=== PATIENT | female | born 1940 | race Caucasian/White ===

== ENCOUNTER 2020-08-21 11:54 | Emergency (ER) | payer OTHER ==
[~2020-08-21] VITALS: Ht 152.4 cm; Wt 72.6 kg
[2020-08-21 11:57] VITALS: BP 125/68
[2020-08-21] MEDS ORDERED: ATENOLOL 50MG T50 MG PO (12:05)
[2020-08-21] MEDS ORDERED: ACETAMINOPHEN500 M1 PO (12:05)
[2020-08-21] MEDS ORDERED: ALOPHEN PILLS5 MG PO (12:06)
[2020-08-21] MEDS ORDERED: ALLERGY MEDICAT25 MG PO (12:07)
[2020-08-21] MEDS ORDERED: LEXAPRO5 MG PO (12:07)
[2020-08-21] MEDS ORDERED: DULCOLAX STOOL100 M1 PO (12:07)
[2020-08-21] MEDS ORDERED: ELIQUIS2.5 MG PO (12:07)
[2020-08-21] MEDS ORDERED: ACID REDUCER20 M1 PO (12:08)
[2020-08-21] MEDS ORDERED: DITROPAN XL10 M1 PO (12:09)
[2020-08-21] MEDS ORDERED: ASA81BEC PO (12:09)
[2020-08-21] MEDS ORDERED: TRAMADOL 50 MG50 MG PO (12:09)
[2020-08-21] MEDS ORDERED: KLOR-CON 10 ER10 MEQ PO (12:09)
[2020-08-21] MEDS ORDERED: ANIMAL CHEWS1 EAC1 PO (12:10)
[2020-08-21 13:02] LABS: ABSOLUTE NEUTROPHILS 4.6 thou/uL (1.4-8.2); BASOPHILS 1.4 % (0.0-2.0); EOSINOPHILS 4.2 % (0.0-3.0); HEMATOCRIT 35.4 % (37.0-47.0); HEMOGLOBIN 11.4 gm/dL (12.0-15.0); LYMPHOCYTES 16.5 % (24.0-44.0); MCH 28.4 pg (26.0-34.0); MCHC 32.1 g/dL (28.0-37.0); MCV 88.3 fL (80.0-100.0); MONOCYTES 11.9 % (1.0-8.0); PLATELET COUNT 395 thou/uL (150-400); RDW 15.3 % (10.5-14.5)
[2020-08-21 13:13] LABS: URINE BILIRUBIN NEGATIVE (Negative); URINE BLOOD NEGATIVE (Negative); URINE CLARITY CLEAR; URINE COLOR YELLOW; URINE GLUCOSE-RANDOM* NEGATIVE (Negative); URINE KETONES NEGATIVE (Negative); URINE NITRITE-REFLEX NEGATIVE (Negative); URINE PROTEIN (DIPSTICK) NEGATIVE (Negative); URINE UROBILINOGEN 0.2 E.U./dl (0.2-1.0)
[2020-08-21 13:15] LABS: URINE LEUKOCYTES-REFLEX 1+ (Negative)
[2020-08-21 13:20] LABS: SQUAMOUS >10 Many /LPF (0-3)
[2020-08-21 13:21] LABS: BACTERIA-REFLEX 1-9 Few /HPF (None Seen); CASTS None Seen /LPF (None Seen); CRYSTALS None Seen /LPF (None Seen); URINE RBC 0-2 Rare /HPF (0-2); URINE WBC-REFLEX 6-15 Few /HPF (0-5)
[2020-08-21 13:29] LABS: CREATININE 1.3 mg/dL (0.6-1.0); POTASSIUM 4.1 mmol/L (3.5-5.1)
[2020-08-21 13:36] LABS: TOTAL BILIRUBIN 0.4 mg/dL (0.2-1.0); TOTAL PROTEIN 7.5 g/dL (6.4-8.2)
[2020-08-21 16:07] VITALS: BP 126/64
--- NOTE | 2020-08-22 06:48 | EKG ---
[address] [employer] [place] [address] ELECTROCARDIOGRAM REPORT Name: CELESTINE SHIPLEY Room #: DEP MICKEY Del Real#: [id number] Admission: 08/21/20 Attend Phys: Discharge: 08/21/20 Date of : 38 Report #: [id number] [facility] ED Test Date: 2020-08-21 Test Time: 12:27:48 Pat Name: CELESTINE SHIPLEY Department: Room: 170 Gender: F Boarding Mother: DAYRON : 1940 Requested By: Sathish Salvador Order Number: [id number] MD: Andrew Ayers Measurements Intervals [place] Rate: 63 P: -15 UT: 168 QRS: -19 QRSD: 139 T: 68 QT: 429 QTc: 440 Interpretive Statements Sinus rhythm Left bundle branch block No previous ECG available for comparison Electronically Signed On 08-22-2020 6:47:59 SUBWAY TRAIN OPERATOR by Andrew Ayers [email or web address] <ELECTRONICALLY SIGNED> By: Andrew Ayers MD, [facility] 08/22/20 0647 1227 1227 Andrew Ayers MD, FACC /EPI
== END 2020-08-21 16:08 | disposition still patient (30) ==
LOC: ER 11:54 → EROBS 13:52 → ER 13:52
PROVIDERS: Emergency Medicine
DX: R41.0 Disorientation, unspecified (principal); I10 Essential (primary) hypertension; E78.5 Hyperlipidemia, unspecified; Z79.899 Other long term (current) drug therapy; Z79.82 Long term (current) use of aspirin; Z88.0 Allergy status to penicillin; Z20.828 Contact with and (suspected) exposure to other viral communicable diseases

== ENCOUNTER 2020-08-21 13:09 | Inpatient (IN) | payer OTHER ==
[~2020-08-21] VITALS: Ht 154.9 cm; Wt 80.3 kg
[~2020-08-21 13:09] MED LIST: ACETAMINOPHEN500 M1 PO; ACID REDUCER20 M1 PO; ALLERGY MEDICAT25 MG PO; ALOPHEN PILLS5 MG PO; ANIMAL CHEWS1 EAC1 PO; ASA81BEC PO; ATENOLOL 50MG T50 MG PO; DITROPAN XL10 M1 PO; DULCOLAX STOOL100 M1 PO; ELIQUIS2.5 MG PO; KLOR-CON 10 ER10 MEQ PO; LEXAPRO5 MG PO; TRAMADOL 50 MG50 MG PO
[2020-08-21 17:31] VITALS: BP 134/77
--- NOTE | 2020-08-21 18:09 | NUR ---
1800 NEW ADMISSION FROM [facility] SHORT TERM MEMORY LOSS . PATIENT WAS NOT EATING, BATHING, OR TAKING MEDICATION, PROBLEM STARTED 6 MONTHS AGO. PATIENT HAS SEVERAL MEDICAL PROBLEMS HAD BOTH KNEE REPLACED LAST YEAR. PATIENT UPON ARRIVING ON UNIT CALM PLEASANT AND ACCEPTING OF GETTING HELP. PATIENT LIKES TO DO CRAFTS AND LIVES ALONE SHE STATES HER SON WAS WORRIED ABOUT HER AND BROUGHT HER HERE. PATIENT IS AMBULATORY HAS A CANE THAT SHE USES, I EXCHANGED IT FOR A WALKER WHILE BEING HERE. PATIENT ALERT ORIENTED TIMES 4 SHE DID NOT KNOW THE CURRENT PRESIDENT. PATIENTS ABDOMEN SOFT BOWEL SOUNDS PRESENT LUNGS CLEAR. PATIENT DOES NOT HAVE ANY WOUNDS ON HER BODY WILL CONTINUE TO MONITOR PATIENT FOR SAFETY AND BEHAVIORS.
[2020-08-21 20:08] VITALS: BP 109/45
--- NOTE | 2020-08-22 03:29 | NUR ---
ASSESSMENTS CHARTED, MEDS CHARTED GIVEN. PATIENT RESTING IN ROOM WHEN I MET HER. CALM AND PLEASANT, BUNDLED IN HOODIE, SWEATER AND BLANKETS TO COUNTERACT THE COLD IN HER ROOM. ASSESSMENT WAS PERFORMED, NO MEDS WERE SCHEDULED FOR EVENING. PATIENT IS UP AT [place] ON UNIT, FALL PRECAUTIONS IN PLACE DURING SHIFT.
[2020-08-22 08:58] VITALS: BP 149/79
--- NOTE | 2020-08-22 15:57 | NUR ---
Assumed pt care 0700. pt was calm and co-operative with care and Assessment. Pt was alert and orient x3. pt was disoriented to time. Assessments completed,VSS. pt took meds whole without difficulties. pt denies si/hi/ pain denies pain. during skin Assessment junior technical writer noted redness on groin and redness in the bikini area(panties line). pt is ambulatory. At approximately 1200, pt son called to get update, pt son reviewed to junior technical writer that his mom fell twice in the last 3 weeks. one fall occured at his house. fall precaution is in place. pt was offered a walker by junior technical writer and she refused. pt was assisted with a shower by the OIL DISPATCHER. junior technical writer applied Triamcinolone to affect areas with redness after shower. will continue to monitor pt.
[2020-08-22 19:27] VITALS: BP 117/53
[2020-08-22 20:45] VITALS: BP 117/53
--- NOTE | 2020-08-23 03:09 | NUR ---
ASSUMED CARE OF PATIENT AT 1900. SHE HAS SPENT ALL EVENING IN HER ROOM. SHE HAS BEEN PLEASANT AND COOPERATIVE. SHE ASKED FOR A LAXATIVE TO HELP HER HAVE A BM. SHE WAS FIXATED ON THIS TONIGHT. MOM GIVEN TO HER WITH HS MEDS. LAST BM WAS 08/20/20. ENCOURAGED PATIENT TO WALK MORE AND DRINK MORE WATER. SHE IS A/0X3 AND FORGETFUL. PATIENT C/O PAIN AT BEDTIME OF LEFT KNEE. SHE HAD HAD SURGERY DONE ON IT IN THE PAST AND WAS AT 5/10 PAIN LEVEL. SHE THINKS IT IS THE WEATHER THAT CAUSED IT TO HURT. PATIENT NOT SLEEPING WITH BRIEFS ON TONIGHT D/T IRRITATION/REDNESS OF THE SKIN IN GROIN AND ABDOMINAL FOLD AREA. PT IS RECEIVING TRIAMCINOLONE CREAM DAILY. DENIES PAIN. PATIENT IS A FALL RISK AND REFUSES TO USE A WALKER. SHE IS SLOW AND STEADY WHEN WALKING THE TAMAYO. PATIENT BED IN LOW POSITION AND BED ALARM IS ON. ROUTINE ROUNDS TO ASSESS SAFETY AND STATUS OF PATIENT.
[2020-08-23 08:10] VITALS: BP 101/58
--- NOTE | 2020-08-23 08:32 | NUR ---
PT ORIENTED TO SELF. PT UP WALKING WITH STEADY GAIT. PT ASKS FREQUENTLY WHERE HER ROOM IS. THIS DRAFTING CLERK WROTE HER NAME ON HER ID BRACELET. PT TOOK MEDS WHOLE WITHOUT ANY ISSUES. PT DENIES ANY PAIN. PT VERY PLEASANT.
[2020-08-23 09:36] VITALS: BP 101/58
--- NOTE | 2020-08-23 10:39 | NUR ---
Assess due to new admission to [facility]. Visit with pt in day room this morning. States she enjoys meals and has no specific food preferences. Does not weigh herself at home but feels she weighs close to 159 lb. Current wt is 154 lb. Pt was not eating few days prior to admit due to confusion, but now eating 60-100% of meals. Low nutrition risk
--- NOTE | 2020-08-23 16:55 | NUR ---
SW was able able to complete assessment with the Pt. Pt was alert and oriented x4. Pt was unable to tell me if she had ever had a dx of dementia. Pt did admit that she has had some issues lately with her memory. Pt recognizes she needs some assistance and is unable to manage medications. Pt reported her PCP recommended the Pt no longer drive. Pt did report having a good support system of neighbors in he community. SW will continue to follow.
--- NOTE | 2020-08-23 17:00 | NUR ---
KWESI called Pt's DPOA/son, Alfredo Spears. Alfredo reported the Pt's PCP talked about Dementia with the Pt but Alfredo was unaware if the Pt was dx. Alfredo reported the Pt has always had issues with her short term memory but recently he has noticed more of a decline in her short term memory. Alfredo also reported the Pt had a home health nurse coming out 3x per week for PT after the Pt's knee replacement. This nurse recommended Pt not be left alone due to issues with cognition. The family arranged for the Pt's daughters to assist however the daughters were not able to help time motion analyst. Pt declined to the point that her home was dirty, rotten food in the fridge, and food in the cabinets. Alfredo stated this was unusual for the Pt. Alfredo stated " She is a very clean and proud woman, she would have been embarassed if she recognized the condition of her home". Alfredo requested cognitive testing with the Pt. KWESI explained the [facility] program and emailed welcome packet to [email or web address]. KWESI will continue to follow
[2020-08-23 19:54] VITALS: BP 125/70
--- NOTE | 2020-08-24 03:09 | NUR ---
ASSESSMENT DOCUMENTED.PT A/OX3,VERY PLEASANT AND CO-OPERATIVE W/CARE.VOICES HER NEEDS TO THE STAFF APPROPRIATELY.DENIES SI.SEEMS CALM AND W/O DISTRESS.SLEEPING MOST OF THE NOC,STILL ASLEEP AT THIS TIME.FALL RISK PRECAUTIONS IN PLACE.PT DENIES FURTHER NEEDS.NO BEHAVIORS NOTED SO FAR THIS SHIFT.SEE INTERVENTIONS FOR THE SHIFT DOCUMENTATION.
[2020-08-24 06:09] LABS: ABSOLUTE NEUTROPHILS 3.4 thou/uL (1.4-8.2); BASOPHILS 1.3 % (0.0-2.0); EOSINOPHILS 8.9 % (0.0-3.0); HEMATOCRIT 31.1 % (37.0-47.0); HEMOGLOBIN 10.1 gm/dL (12.0-15.0); LYMPHOCYTES 24.1 % (24.0-44.0); MCH 28.4 pg (26.0-34.0); MCHC 32.6 g/dL (28.0-37.0); MCV 87.2 fL (80.0-100.0); MONOCYTES 11.7 % (1.0-8.0); RBC 3.56 mil/uL (4.20-5.00); RDW 15.1 % (10.5-14.5); WBC 6.2 thou/uL (4.0-11.0)
[2020-08-24 06:16] LABS: CALCIUM 8.7 mg/dL (8.5-10.1); CREATININE 1.2 mg/dL (0.6-1.0); MAGNESIUM 2.2 mg/dL (1.8-2.4); POTASSIUM 4.1 mmol/L (3.5-5.1)
[2020-08-24 06:34] LABS: PLATELET COUNT 306 thou/uL (150-400)
[2020-08-24 06:45] LABS: FOLIC ACID 8.6 ng/mL (8.6-58.9)
[2020-08-24 09:18] VITALS: BP 141/75
--- NOTE | 2020-08-24 14:53 | NUR ---
Order obtained for neuropsych testing due to recent cognitive decline.
--- NOTE | 2020-08-24 17:34 | NUR ---
VISIBLE IN DAYROOM THROUGHOUT SHIFT-ATTENDS GROUPS WITH ACTIVE LEVEL OF PARTICIPATION. FULL RANGE AFFECT. SOCIAL WITH FEMALE PEERS-EATING WELL. GAIT STEADY WITH USE OF ROLLER WALKER. ORIENTED TO PERSON,PLACE HOWEVER RESPONSES ARE VAGUE WHEN SPEAKING ABOUT WHY SHE WAS HERE BEFORE EVENTUALLY STATING "I GUESS IT IS MY MEMORY"DID REPORT LEFT KNEE PAIN RATED A 6 ON 1-10 SCALE-ULTRAM 50MG PO PRN AT APPROX 1715-WILL MONITOR RESPONSE
[2020-08-24 19:26] VITALS: BP 152/72
[2020-08-24 20:20] VITALS: BP 152/72
--- NOTE | 2020-08-25 01:33 | NUR ---
PATIENT HAS BEEN IN HER ROOM ALL SHIFT. SHE IS A/0X4 BUT FORGETFUL AND REPEATS HER STORIES ALOT. PATIENT HAS BEEN PLEASANT AND COOPERATIVE. SHE DENIES SI/HI/AVH. SHE DENIES PAIN. SHE REFUSES TO USE A WALKER AND AMBULATES ON HER OWN. PATIENT TOOK HER MEDS WHOLE WITH WATER. LBM WAS 08/20/20. BISCADYL TABLET GIVEN WITH HS MED TONIGHT. PATIENT IS MOSTLY INDEPENDENT WITH CARES AND CONTINENT. SHE DOES HAVE A RASH IN GROIN AND ABDOMINAL FOLD THAT IS BEING TREATED WITH TRIAMCINOLONE CREAM. PATIENT APPEARS TO BE RESTING IN BED WITH EYES CLOSED. BED IN LOW POSITION AND BED ALARM IS ON.
[2020-08-25 07:53] VITALS: BP 125/63
[2020-08-25 09:23] VITALS: BP 125/63
--- NOTE | 2020-08-25 11:06 | NUR ---
1100 RESUMMED CARE FROM OVERNIGHT SHIFT THIS AM, PATIENT IN DAY ROOM INTERACTING WITH OTHER PATIENTS. PATIENT ATE BREAKFAST TOOK MEDICATION WITHOUT INCIDENCE. PATIENT DENIES SI/HI/AH/VH AT PRESENTATIENT ALERT ORIENTED TIMES 3. PATIENT PLEASANT CALM COOPERATIVE PARTICIPATES IN GROUPS, I GAVE PATIENT BISCODYL 5 MG WITH MORNING MEDS AND WARMED PRUND JUICE FOR PATIENT TO HELP WITH MOVING HER BOWELS. PATIENT ABDOMEN SOFT BOWEL SOUNDS PRESENT LUNGS SOUNDS PRESENT AND CLEAR. PATIENT IS SWEATING UNDER BOTH BREAST AND HAS SLIGHT RASH IN GROIN AREA. I PUT TRIAMCINOLONE 1% IN AFFECTED AREAS WILL CONTINUE TO MONITOR PATIENT FOR SAFETY AND BEHAVIORS.
[2020-08-25 20:02] VITALS: BP 137/72
--- NOTE | 2020-08-26 00:19 | NUR ---
Assumed pt care 1930. pt was alert and oriented x3. she was calm and co-operative with care. pt took medication whole with thin liquid, no difficulty noted. pt denies SI/HI, PT DENIES PAIN. NO SIGN OF DISTRESS NOTED. PT AMNULATES SELF. ASSESSMENT COMPLETED VSS. WILL CONTINUE TO MONITOR PT
[2020-08-26 08:15] VITALS: BP 131/105
[2020-08-26 09:39] VITALS: BP 131/105
--- NOTE | 2020-08-26 16:21 | NUR ---
PATIENT WAS UP IN ROOM PERFORMING ADL WHEN CARE ASSUMED. SHE AMBULATES WITH SLOW STEADY GAIT, HAS PAST HISTORY OF FALL, FALL RISK BAND, AND YELLOW SHIRT IN PLACE, PATIENT CHOOSE TO WEAR PERSONAL SHOES. PATIENT TOOK ALL MEDICATIONS WHOLE WITHOUT DIFFICULTY, SHE IS EATING MEALS, AND DRINKING FLUID WELL. PATIENT DENIES SUICIDAL/HOMICIDAL IDEATION, SHE DENIES DEPRESSION/ANXIETY "AM FINE HONEY SOMETIMES I THINK OF MY LATE ". PATIENT DENIES AUDITORY/VISUAL HALLUCINATION. PATIENT IS ALERT, AND ORIENTED X 2-3 WITH PERIODS OF FORGETFULNESS. SHE IS CONTINENT OF BOWEL/BLADDER. PATIENT DENIES HAVING PHYSICAL PAIN. PATIENT REPORTS LAST BOWEL MOVEMENT WAS ON 08/25/20. NO BOWEL MOVEMENT AT THIS TIME. AFFECT IS BRIGHT, MOOD IS CALM/HAPPY. NO SIGN OF ACUTE DISTRESS NOTED AT THIS TIME, WILL MONITOR FOR SAFETY.
[2020-08-26 19:34] VITALS: BP 140/74
[2020-08-27 01:47] VITALS: BP 140/74
--- NOTE | 2020-08-27 02:27 | NUR ---
Assumed care on 08/26/20 @ 1900, seated in the day room socializing with peers and watching tv. Cooperated with assessment, HRRR, Lungs CTA bilat, ABD BS present. Requested medication for constipation, Biscodal 5mg proavided for constipation. Tramadol 25 mg provided for general 6/10 pain. Denies SI/HI, Confirms anxiety. A&Ox 4. Retired to bed @ HS and sleeping at this writing. Bed in low position, bed alarm set, Will continue to monitor for safety and comfort as per unit protocol.
[2020-08-27 05:58] LABS: ABSOLUTE NEUTROPHILS 3.5 thou/uL (1.4-8.2); BASOPHILS 1.7 % (0.0-2.0); EOSINOPHILS 7.2 % (0.0-3.0); HEMOGLOBIN 10.3 gm/dL (12.0-15.0); LYMPHOCYTES 21.8 % (24.0-44.0); MCH 28.3 pg (26.0-34.0); MCHC 32.2 g/dL (28.0-37.0); MONOCYTES 12.2 % (1.0-8.0); PLATELET COUNT 322 thou/uL (150-400); POLYS 57.1 % (36.0-66.0); RBC 3.64 mil/uL (4.20-5.00); RDW 15.1 % (10.5-14.5); WBC 6.2 thou/uL (4.0-11.0)
[2020-08-27 06:38] LABS: ALBUMIN 2.8 g/dL (3.4-5.0); CALCIUM 8.6 mg/dL (8.5-10.1); CREATININE 1.2 mg/dL (0.6-1.0); MAGNESIUM 2.3 mg/dL (1.8-2.4); PHOSPHORUS 3.4 mg/dL (2.5-4.9); POTASSIUM 4.1 mmol/L (3.5-5.1); TOTAL BILIRUBIN 0.3 mg/dL (0.2-1.0); TOTAL PROTEIN 6.8 g/dL (6.4-8.2)
[2020-08-27 08:36] VITALS: BP 166/76
[2020-08-27 11:05] VITALS: BP 166/76
--- NOTE | 2020-08-27 15:26 | NUR ---
PATIENT CARE ASSUMED [id number]. PATIENTUP IN DINING TAMAYO.PATIENT ADMITS TO PERIODS OF DEPRESSION - STATE LOST ABILITY TO DRIVE SEVERAL MONTHS AGO. HAD TO MOVE FROM [place] APARTMENT WHERE SHE RESIDED FOR TEN YEARS. CLAIMS ADDED TO HER UNHAPPINESS. SPOKE FOR SOMETIME ABOUT HER FAMILY - ALERT AND ORIENTED X 4 - DENIED ANY PAIN DISCOMFORT. HAS SEVERE CONSTIPATION - SPOKE TO DR. PABLO ON THIS - ADDED LACTOLOSE TO HER MAR. PATIENT HAS OCCULT ON ORDER AND STOOL SAMPLE NEEDED. PATIENT STATES HAS HAD LONG HISTORY OF PROBLEMS MOVING HER BOWELS. SUPOSITORY ORDER ALSO PLACED AND PATIENT WANTS TO WAIT TILL BEDTIME - PATIENT AMBULATORY - SELF CARE. GOOD APPETITE BUTSTATED DID NOT WANT ANYTHING FOR DINNER- STOMACH BOTHERING HER NOW. PATIENT CALLED FAMILY LATER IN AFTERNOON AND CONVERSATION WENT WELL. LAID DOWN FOR SHORT TIME LATER IN AFTERNOON JUST BEFORE DINNER. WILL CONTINUE TO MONITOR PATIENT FOR SAFETY, BEHAVIOR CHANGES OR FURTHER CONCERNS AND ADDRESS NEEDED.
--- NOTE | 2020-08-27 16:07 | NUR ---
SW met with patient to discuss testing. Patient reported she was aware that she would be having a test but was unsure what it was. SW shared with patient information about the testing. Patient reported an understanding and stated she would be interested in finding out what is wrong with her brain. She stated her stomach hurts and she would like to go home. Patient asked if she could call her daughter. SW provided patient with the phone.
[2020-08-27 19:08] VITALS: BP 155/82
--- NOTE | 2020-08-28 01:20 | NUR ---
Assumed care for pt at 1900. Pt A&O x 3. Pt has remained in her room this shift. Pt calm, pleasant, and cooperative. Pt compliant with HS medications, took whole wih water. Pt denies pain at time of assessment. Denies anxiety, depression, SI/HI. Pt does report discomfort in stomach r/t consitipaton. Pt requested and administered glycerin suppostiory with HS medications. At this time has not had BM; will continue to monitor for results. Pt is on 12 min rounds for safety. Will continue to monitor for any changes in mood/behavior.
[2020-08-28 05:36] LABS: CALCIUM 8.8 mg/dL (8.5-10.1); CREATININE 1.1 mg/dL (0.6-1.0)
--- NOTE | 2020-08-28 06:26 | NUR ---
Per follow up with pt this morning, she has had no results from suppository att his time.
[2020-08-28 08:39] VITALS: BP 135/73
[2020-08-28 11:26] VITALS: BP 166/76
--- NOTE | 2020-08-28 11:48 | NUR ---
RT Progress Note- Hodan has been present in both the milieu and recreation therapy groups since her admission. She is cheerful in doing so and expressed that she enjoys visiting with the other patient's on the unit. She has a caretaking personality and is often observed comforting or checking on the other patients, but does so with appropriate boundaries. She is able to remain on task during groups though she occasionally needs prompting. CAPTION WRITER will continue to encourage participation.
--- NOTE | 2020-08-28 13:29 | NUR ---
1325 RESUMMED CARE FROM OVERNIGHT SHIFT THIS AM, PATIENT IN DAY ROOM TALKING WITH OTHER PATIENTS. PATIENT ATE BREAKFAST TOOK MEDICATION WITHOUT INCIDENCE; PATIENT WAS CONCERNED ABOUT CONSTIPATION. I GAVE PATIENT BISCODYL, COLACE, LACTULOUS AND 2 PRUNE JUICES. PATIENT DID HAVE BOWEL MOVEMENT AND SPECIMEN SENT TO LAB FOR OCCULT BLOOD. PATIENT ALERT ORIENTED TIMEES 3 PATIENT CALM COOPERATIVE. PATIENT DENIES SI/HI/AH/VH AT PRESENT PATIENTS ABDOMEN SOFT BOWEL SOUNDS PRESENT. PATIENTS LUNGS CLEAR PATIENT PARTICIPATES IN GROUPS WILL CONTINUE TO MONITOR PATIENT FOR SAFETY AND BEHAVIORS.
--- NOTE | 2020-08-28 18:18 | NUR ---
KWESI recieved a call from Pt's daughter, Janneth Grimm. Janneth wanted information about [facility]. SW provided information about the unit and the population served. Janneth informed Pt was calling stating people are fighting on the unit and wanted to go home. SW assured that Pt is safe and there have been no fights on the unit. Janneth stated there is family tension concerning the DPOA. Also that she and her sister have been left out of the loop by the DPOA. SW encouraged Janneth to resolve the issues with the Pt's DPOA in and effort to make family decisions concerning the Pt. Janneth would like to continue to recieve updates on the Pt while on the unit. KWESI will continue to follow
[2020-08-28 19:04] VITALS: BP 155/95
--- NOTE | 2020-08-29 00:47 | NUR ---
Assumed care for pt at 1900. Pt resting in bed with eyes closed at start of this shift, before coming out to dining room for a little bit of time this evening. Pt is calm, cooperative and pleasant. Pt compliant with medication. Pt takes medication whole with thin liquids, such as water. Pt denies having any pain. Pt denies depression, anxiety, SI/HI. Pt is on 12 minute checks for safety. Will continue to monitor for any changes in mood/behaviors.
[2020-08-29 09:21] VITALS: BP 120/71
--- NOTE | 2020-08-29 10:36 | NUR ---
0700 ASSUMED CARE OF PATIENT, PATIENT IN DAYROOM AT THAT TIME. PATIENT SITTING AT TABLE QUIETLY. DENIED NEEDS AT THAT TIME. 0730 NO C/O PAIN, DENIES SI/HI, NO COUGH, VS WNL. PATIENT CALM AND COOPERATIVE ANSWERING QUESTIONS APPROPRIATLY. LS CLEAR, BS ACTIVE. MEDICATIONS TAKEN WHOLE WITHOUT DIFFICULTY. 0900 PATIENT SITTING IN WITH GROUP. PATIENT UP AMB WITH WALKER WITHOUT DIFFICULTIES. WILL CONTINUE TO OBSERVE
--- NOTE | 2020-08-29 15:59 | NUR ---
1435 PATIENT TO [facility] ROOM FOR CONSULT WITH DR. BRADLEY. 1600 PATIENT IN DAYROOM SITTING AND COMMUNICATING WITH OTHERS WELL. NO BEHAVIORS NOTED.
[2020-08-29 19:20] VITALS: BP 119/53
--- NOTE | 2020-08-30 04:54 | NUR ---
Assumed care on 08/29/20 @ 1900, Seated in the day room at a table socializing with peers and ambulating the halls with peers. Occult blood (-). A&Ox3 pleasant affect noted. Cooperative with assessment and medication administration. PRN Tramadol 25mg provided for pain. HRRR with s1s2 noted, Lungs sounds CTA bilat, ABD n x 4Q, reports BM today. Independent with toileting. Ambulates with a steady gait, does not like to use walker. Retired by 20:00, son called after she was in bed, and he was advised that she was already asleep. Will continue to monitor as per unit protocol for safety and comfort.
[2020-08-30 10:26] VITALS: BP 137/53
--- NOTE | 2020-08-30 10:34 | NUR ---
Followup: intake trends variable 30-100%. Pt cannot verbalize usual wt and weekly wts with high variancy 154 lb vs 177 lb. Will follow trends. Pt enjoys the meals. Low nutrition risk
--- NOTE | 2020-08-30 11:05 | NUR ---
0700 ASSUMED CARE OF PATIENT, PATIENT SITTING IN DAYROOM AT THAT TIME. PATIENT CALM AND COOPERATIVE DENIES NEEDS AT THAT TIME. 0800 PATIENT EATING BREAKFAST WITH OTHER AND COMMUNICATING WELL. MEDICATIONS TAKEN WHOLE WITHOUT DIFFICULTY. PATIENT STATES "I AM READY TO GO HOME, WILL TALK TO DR TO SEE IF I CAN LEAVE TOMORROW". PATIENT NOTED SITTING IN GROUP AT 0900. PATIENT VOICED HAVING BM TODAY. BS ACTIVE, LS CLEAR, NO C/O PAIN.
--- NOTE | 2020-08-30 16:05 | NUR ---
KWESI called Pt's DPOA, Alfredo, to give and update, However he did not answer the call. KWESI left a message for a call back
--- NOTE | 2020-08-30 18:05 | NUR ---
patient requested suppositories at 1800 for continued difficulty with constipation.
[2020-08-30 19:26] VITALS: BP 106/61
[2020-08-31 09:27] VITALS: BP 133/68
--- NOTE | 2020-08-31 17:07 | NUR ---
0700 ASSUMED CARE OF PATIENT, PATIENT IN ROOM AT THAT TIME. 0730 PATIENT OUT TO DAYROOM FOR BREAKFAST. PATIENT CALM AND COOPERATIVE, DENIED NEEDS. PATIENT AMB WITH WALKER, NO C/O PAIN, LS CLEAR, BS ACTIVE. MEDICATION TAKEN WITHOUT DIFFICULTY THIS AM. ATTENDS GROUPS. PATIENT SITS AND TALKS WITH OTHER WELL. PATIENT FIXATED ON BOWL MOVEMENT. LBM 08/30. PATIENT PLEASANTLY CONFUSED AT TIMES.
--- NOTE | 2020-08-31 17:21 | NUR ---
LAYO called Alfredo concerning results of nuero psy testing with the Pt. Alfredo stated he had spoken with Dr. Sommers concerning the results and recommendations. LAYO again informed of Pts Dx and the recommendation for 24 hour supervision and care. LAYO provided education on medicaid and fci care. Layo provided information on in home care and emailed the family a listing. Alfredo wants placement for the Pt however wants the Pt to come home for a couple of days prior to placment. LAYO informed that if placed from the hospital Pt would go immediately to the facility. Alfredo expressed guilt over this information stating " I feel guilt because I told my mom she would be coming home and I would like for her to be able to spend time with her friend and family prior to going to a fci." LAYO provided emotional support and offered alternatives to fci care. LAYO informed Alfredo of the pros and cons of [facility]ci care, in home care, and Pt living with a realative. However LAYO was very clear that the recommendation is 24 hour care and supervision. Alfredo wanted to talk to his sisters about the choices. Layo requested a medicaid screening with Med assist. Layo will continue to follow.
[2020-08-31 19:00] VITALS: BP 133/110
--- NOTE | 2020-09-01 05:31 | NUR ---
Assumed care on 08/31/20 @ 1900, Cooperated with assessment and med administration. HRRR, S1S2 noted, Lungs CTA, ABD Normoactive no BM today. Reports L knee pain of 6/10 Tramadol 25mg provided. Denies Hallucinations, SI/HI/ anxiety. Regarding depression, reports it is beter, but "I get down once in a while."
[2020-09-01 09:32] VITALS: BP 122/62
--- NOTE | 2020-09-01 14:35 | NUR ---
Alert and orientated X4. Forgetful. Denies SI/HI. Ambulates with regular, steady gait, does not use walker. Wants to know when she will be discharged. Breath sounds clear. Reg HR auscultated. Color pink with brisk capillary refill. +2 edema in lower legs. Independent with voiding. Active bowel sounds over soft, rounded abdomen. States she had a BM yesterday. Participating in groups today. No s/o distress.
--- NOTE | 2020-09-01 14:40 | NUR ---
KWESI had a phone call with Alfredo concerning discharge plans. Alfrdeo stated he would be moving in with the Pt and hiring a home health agency to provide caregiving services. Alfredo stated he wanted Pt to go home and be able to adjust to the idea of going into a nursing facility. KWESI provided emotional support and education on mediciad. KWESI again stressed the importance of 24 hour care for the Pt. Alfredo verbalized understanding. Discharge is scheduled for 09/04/2020 @12pm to home. Alfredo will transport the Pt.
--- NOTE | 2020-09-02 03:27 | NUR ---
Assumed care on 09/01/20 @ 1900, socializing with peers, ambulating throughout the mileu independently, does not use her walker and toilets independently. Cooperates with medication administration, denies si,hi and hallucinations. Reports some depression. Confusion noted. Awakens a number of times in the night, asks the time and then returns to bed. Will continue to monitor for safety and comfort.
[2020-09-02 06:47] VITALS: BP 104/64
--- NOTE | 2020-09-02 10:40 | NUR ---
Alert and orientated to person and place. Gives day in 1992 or 1993 for time. Denies SI/HI. Looking forward to going home on Friday. Ambulates with regular, steady gait. Breath sounds clear. Reg HR auscultated. Color pink with brisk capillary refill and palpable peripheral pulses. Independent with voiding. Active bowel sounds over soft, rounded abdomen. Concerned that she has not had a BM in 2 days, states she is constipated. Biscodyl given PO. Currently ambulating in unit without s/o distress.
--- NOTE | 2020-09-02 15:07 | NUR ---
KWESI received a call from pt's son Alfredo who informed that he will not be able to take pt home as planned. He thought his sister's would be able to alternate shifts with him to provide 24 hr care for patient but states the sisters have backed out so he no longer has 24 hr care. 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 He states he provided everything except one document to Rosa to complete the Medicaid application. KWESI informed if pt is Medicaid pending, it allows additional options for placement. KWESI sent a list of LTC facilities to [email or web address].
[2020-09-02 21:49] VITALS: BP 127/59
--- NOTE | 2020-09-03 02:45 | NUR ---
ASSESSMENT: POSSIBLE DISCHARGE TO HOME ON FRIDAY. FOLLOWING COMMANDS, COOPERATIVE. DENIES PAIN. UP WITH WALKER WITH STEADY GAIT. VSS, AFEBRILE. DENIES FEELING CONSTIPATED THIS SHIFT, SAYS SHE IS PASSING FLATUS. ABD NOT DISTENDED, ACTIVE BOWELS SOUNDS. TAKING MEDS WITHOUT DIFFICULTY. GOOD PROGRESS TOWARDS DC GOALS. WILL CONTINUE TO MONITOR..
[2020-09-03 07:45] VITALS: BP 154/81
--- NOTE | 2020-09-03 10:18 | NUR ---
Assumed pt care at 0700. pt was alert and x3. pt was calm and co-operative with care and medication admin. pt ambulates with a steady gait. pt Denies si/hi. pt denies pain. Assessments completed, VSS. active bowel sounds. pt took medication whole without difficulties. pt goals was to work towards getting D/C. pt participated in groups. At this time there is no sign of distress noted. will continue to monitor pt.
--- NOTE | 2020-09-03 12:06 | NUR ---
SW was informed that pt continues to ask what time her son will pick her up today. KWESI spoke to Alfredo and inquired whether pt had been informed of the change in her discharge plan. Alfredo stated the family had not informed pt. KWESI facilitated a conference call with Alfredo and pt in which he explained he will not pick her up today. He further explained they are looking for a placement for her to go to and he would pick her up once they found a place. Pt seemed agreeable. Alfredo informed KWESI that he and his sister have identified six places they would like referrals sent to. He stated he emailed the list to SW today. SW will follow up. SW team will continue to follow.
--- NOTE | 2020-09-03 12:20 | NUR ---
DURING WEEK ONE OF HER ADMISSIONMCELESTINE HAS BEEN ACTIVE WITH PEERS AND STAFF MEMBERS. PT HAS PROVIDED GREAT ATTENDANCE IN ALL RECREATION THERAPY GROUPS. IT IS ENCOURAGED BY THE RECREATION THERAPIST THAT SHE WILL COPING SKILLS AND SELF ESTEEM TO REDUCE ANY FUTURE STRESSORS.
[2020-09-03 19:27] VITALS: BP 104/44
[2020-09-03 21:40] VITALS: BP 130/62
--- NOTE | 2020-09-04 05:24 | NUR ---
09-03-20 CARE TRANSFERRED 1900 OBSERVED PT SITTING IN DAY ROOM SOCIALIZING WITH OTHERS. PT AAOX4, VSS, RR EVEN AND NONLABORED ON RA. PT REPORTS LEFT KNEE PAIN AND PAIN MANAGED WITH PRN MEDICATION. PT DENIES SI/HI. ZERO S/S OF ACUTE DISTRESS NOTED, PT WILL CONTINUE TO BE MONITOR PER [facility].
[2020-09-04 09:00] VITALS: BP 129/60
[2020-09-04] MEDS ORDERED: TENORMIN50 MG PO (12:03)
[2020-09-04] MEDS ORDERED: IRON325 PO (12:03)
[2020-09-04] MEDS ORDERED: COZAAR 50 MG TA50 M1 PO (12:04)
[2020-09-04] MEDS ORDERED: ZYPREXA 5 MG TAB5 M1 PO (12:05)
[2020-09-04] MEDS ORDERED: CELEXA10 MG PO (12:05)
[2020-09-04] MEDS ORDERED: COLACE 100 MG100 MG PO (12:06)
[2020-09-04] MEDS ORDERED: FOLIC ACID1 MG PO (12:07)
--- NOTE | 2020-09-04 12:27 | NUR ---
@9:15 am KWESI recieved a call from Janneth, Pt's daughter. Janneth expressed concerns over Pt discharge plan. KWESI informed the plan was changed due to Alfredo stating the plan for Pt to go home with family providing 24 hour supervision would not work due Denita and Janneth not being able to provide care. Janneth stated that Alfredo had not spoken to the family concerning the matter and that, Janneth went on to talk about family issues and Alfredo's decision making capacity. KWESI provided emootional support. KWESI also gave education on DPOA and informed that the Pt's DPOA had not been enacted by a doctor at this time. Due to no enactment Pt is able to make decisions concerning her care. Kwesi informed in oder to discharge there would need to be a safe plan to provide 24hr care and supervision for the Pt. Janneth call KWESI back after she spoke with her sister Denita concerning a plan of care for the Pt. KWESI also gave information concerning [place] Medicaid home and [employer] program. @11am KWESI had a 1 on 1 with the Pt. KWESI explained the issues with her discharge and asked Pt what she wanted. Pt stated she wanted to back to her home and under stood she needed 24 hr care and supervision. Pt expressed concern about the way her son, Alfredo, has handeled things. KWESI talked to Pt about her current DPOA and provided Pt with a copy. KWESI encouraged Pt to talk to all three of her children and make known her wishes, in and effort to cut conflict in the future. KWESI informed Pt about phone call with Janneth. Pt stated she was in agreement with the plan to go home and her family to provide care in the home. KWESI will continue to follow up. KWESI followed up with Dr. Katz on the discharge. Dr. Katz stated he was in agreement with the discharge if Pt was stable over the weekend.
--- NOTE | 2020-09-04 13:05 | NUR ---
KWESI talked with Pt's nurse Omero concerning a phone call she recieved from the Pt's daughter, Em. Omero informed that Janneth stated she would pick the Pt up today and asked what time Pt would be ready. KWESI followed up with Janneth concerning the matter. Janneth informed that she had spoken with Denita and they are willing to pickle solution maker the Pt. Janneth stated that she along with Denita along with other family members will be providing 24 hr car in the home for the Pt. Janneth expressed concern about KWESI calling to inform Alfredo about the Plan. Janneth stated Alfredo would be very upset and would come and " snatch the Pt out of the hospital". KWESI informed that this would be the Pt's choice if she wanted to leave with Alfredo or not. KWESI stated the necessasity to follow up with Alfredo as he has been the point of contact on discharge. Janneth seemed okay with this information. D/C is scheduled for 09/04/2020 @1330 Pt has a follow up with PCP Dr. Galdamez on 09/05/2020 @3:55pm Pt will need to call [facility] [phone] for and intake appointment for Psychiatry. This information will be provided to Pt at discharge on discharge handout.
[2020-09-04 13:06] VITALS: BP 129/60
--- NOTE | 2020-09-04 13:25 | NUR ---
Assumed pt care at 0700. pt was alert and oriented x4. pt was calm and co-operative with care. pt denies si/hi. pt denies pain. Assessments completed Vss. PT AMBULATES WITH A STEADY GAIT. pt took her medication whole without difficulties. pt participated in groups. NO SIGN OF DISTRESS NOTED DURING ASSESSMENTS. AT 1320 pt was discharged home with daughter Em. pt was treansported to ER entrance door via W/C with her belongings. pt went home with her D/C Instruction packet. D/C instruction was read to pt and her daughter. pt and daughter expressed understanding.
--- NOTE | 2020-09-04 14:15 | NUR ---
AFTER PT. LEFT TODAY, HER SON CALLED. HE WAS VERY UPSET BECAUSE HE WAS NOT NOTIFIED OF THE PT. LEAVING WITH HER DAUGHTER. HE WAS UNDER THE IMPRESSION THAT HE WAS THE DPOA AND HE SHOULD OF BEEN NOTIFIED BEFORE SHE HAD LEFT. THE PATIENT'S DPOA WAS NOT INACTED AND THE PT. CAN MAKE HER OWN DECISIONS. THE DR., PT. AND SW WERE ALL IN AGREEMENT. PT. DEMANDED TO SPEAK WITH THE SW. THE PHONE WAS TRANSFERED TO THE . THE FAMILY LAWYER WAS ALSO NOTIFIED OF THE PHONE CALL.
--- NOTE | 2020-09-04 14:16 | NUR ---
KWESI recieved a call from Alfredo Spears. KWESI informed Pt had been discharged. Alfredo begin to yell asking why the Pt was discharged. KWESI asked Alfredo to calm down if he wanted the conversation to continue. Alfredo calmed down a bit. Alfredo wanted to know why he was not informed of the Pt's discharge. KWESI informed of Pt's rights and that the Pt asked for Janneth to be contacted for transportation. KWESI reminded Alfredo of the conversation he had with weekend KWESI Pal and the Pt about the change in her discharge plan. KWESI informed that the Pt was unhappy with that plan and was upset this morning concerning the matter. KWESI informed that the Pt wanted to continue with discharge today. KWESI informed that the Pt's DPOA had not been enacted and the Pt had a rights concerning her treatment and discharge. KWESI acknowledged working with Alfredo and the Pt on the Pt's discharge and the Pt being in agreement until the plan was changed. KWESI repeated the Pt has a right to tell the hospital who to contact. Alfredo asked, " Did my mom ask that you explicitly not call me?" Kwesi informed that the Pt asked for Janneth to be contacted and did not mention weather or not to contact Alfredo. Alfredo began to yell again stating " You don't know what type of care you have released her into I will send you and email about the care you have released her to." KWESI informed that the Pt had a safe discharge plan and was ready for discharge. Alfredo continued to ask the question of why he was not informed. KWESI did plan to call Alfredo but Alfredo called before KWESI could. Alfredo remained upset. KWESI offered to have Alfredo speak to Migdalia Santoyo if he wanted to make a complaint. Alfredo state " I'll have some one talk to you alright" and hung up the phone. KWESI did inform Migdalia Santoyo about the conversation.
--- NOTE | 2020-09-06 14:08 | D ---
[facility] [place] [address] DISCHARGE SUMMARY Name: CELESTINE SHIPLEY Room #: 52-B [facility] IN M.R.#: [id number] Admission: 08/21/20 Attend Phys: Harsh Katz MD Discharge: 09/04/20 Date of : 38 Report #: [id number] THIS REPORT FOR: cc: Mckinley Galdamez MD, Daniel C. MD Kerstein, Andrew H. DO ~ DATE OF SERVICE: 09/04/2020 INPATIENT PSYCHIATRIC DISCHARGE SUMMARY ATTENDING PSYCHIATRIST AT THE TIME OF DISCHARGE: Hardeep Alvarez DO. CARD CLOTHIER AT THE TIME OF DISCHARGE: Homero Neil MD DISCHARGE DIAGNOSES: As follows: Major neurocognitive disorder, likely due to Alzheimer's disease with behavioral disturbance improved, generalized anxiety disorder. MEDICAL COMORBIDITIES: This admission are as follows: None; however, medication silverio, she is being treated with iron for likely mild anemia, bladder incontinence and several antihypertensives. DISCHARGE PLAN: She is discharging to her daughter's home. Activity level as tolerated. No driving, no alcohol, no illicit drugs. Aftercare is as follows: [facility]. She has a primary care physician in [place], [place]. DISCHARGE MEDICATIONS: As follows: Bisacodyl 5 mg oral at 0900 p.r.n. constipation; apixaban tablet 2.5 mg p.o. oral daily for stroke prevention; omeprazole 20 mg oral daily for GERD; oxybutynin chloride 10 mg oral daily for bladder incontinence; potassium chloride for supplementation 10 mEq 1 tab p.o. daily at 0900; aspirin 81 mg oral daily at 0900; multivitamin oral daily; ferrous sulfate 325 mg oral Friday, Friday, Friday for iron replacement; atenolol 50 mg oral daily for hypertension; losartan 50 mg oral daily for hypertension; citalopram 10 mg oral daily for history of depression; olanzapine 5 mg oral daily for mood stabilization; docusate 100 mg oral daily bowel motility; folic acid 1 mg oral daily for supplementation. DIET: Regular. The patient was given crisis plan. activity level: as tolerated REASON FOR ADMISSION: In mid August is as follows: An 80-year-old female having short-term memory loss, delusions. She is living in a longterm apartment, reportedly some self-care failure or may be even with bathing, [facility] [address] [place] [address] DISCHARGE SUMMARY Name: CELESTINE SHIPLEY Room #: 522B-B [facility] IN ..#: [id number] Admission: 08/21/20 Attend Phys: Harsh Katz MD Discharge: 09/04/20 Date of : 38 Report #: [id number] noncompliant with her medications. HOSPITAL COURSE: The patient was admitted to the Geriatric Psychiatry Unit. She was managed mainly by Dr. Katz. She was started on olanzapine 2.5 mg oral daily, this was titrated to 5 mg at bedtime. The patient had improvement in her mood and delusional nature. There were some family disagreements about placement versus staying with her daughter. Daughter, Janneth, made a decision to pick her up. ADDITIONAL BODY MECHANIC APPRENTICE: Bobo Sommers, Ph.D., neuropsychologist. DIAGNOSIS: Major neurocognitive disorder was made. PHYSICAL EXAMINATION: VITAL SIGNS: On the day of discharge are as follows: Temperature 35.9, pulse 58, respirations 16, BP 129/60. GENERAL: Normal gait and station. Wearing glasses. MENTAL STATUS EXAMINATION: A well-developed, well-nourished female appearing stated age. No dyskinetic movements. Speech is normal in rate, volume and tone. No psychomotor agitation. No psychomotor retardation. Thought process is linear and goal directed. Thought content focused on discharge. Happy that her daughter is picking her up. Insight and judgment fair to limited. Oriented to person, place. Time, not tested. Memory not formally tested. Attention, concentration fair. Language, above average. Fund of knowledge diminished. Mood okay, confluent, euthymic. PROGNOSIS: For this patient is fair to guarded, will depend on family support. Certainly, the patient will need daily assistance. She should not drive and she should be monitored for deterioration in her dementia severity. <ELECTRONICALLY SIGNED> By: Hardeep Alvarez DO 09/06/20 1408 [id number] Hardeep Alvarez DO /nt
== END 2020-09-04 13:13 | disposition home or self-care (01) | DRG 57 ==
LOC: SBH
PROVIDERS: Internal Medicine; Nurse Practitioner; ADMIT Psychiatry & Neurology Psychiatry; ATTEND Psychiatry & Neurology Psychiatry
DX: G30.9 Alzheimer's disease, unspecified (principal); F02.81 Dementia in other diseases classified elsewhere, unspecified severity, with behavioral disturbance; N18.31 Chronic kidney disease, stage 3a; F01.51 Vascular dementia, unspecified severity, with behavioral disturbance; F41.1 Generalized anxiety disorder; K21.9 Gastro-esophageal reflux disease without esophagitis; F32.9 Major depressive disorder, single episode, unspecified; Z79.899 Other long term (current) drug therapy; Z88.0 Allergy status to penicillin; Z60.2 Problems related to living alone; Z86.16 Personal history of COVID-19; Z96.653 Presence of artificial knee joint, bilateral; I25.10 Atherosclerotic heart disease of native coronary artery without angina pectoris; G47.33 Obstructive sleep apnea (adult) (pediatric); E78.2 Mixed hyperlipidemia; K59.00 Constipation, unspecified; I12.9 Hypertensive chronic kidney disease with stage 1 through stage 4 chronic kidney disease, or unspecified chronic kidney disease; Z79.01 Long term (current) use of anticoagulants; E66.3 Overweight; Z68.33 Body mass index [BMI] 33.0-33.9, adult; E53.8 Deficiency of other specified B group vitamins
CPT/HCPCS: 10880